=== PATIENT | female | born 1990 | race Caucasian/White ===

== ENCOUNTER 2022-11-06 07:49 | Outpatient (CLI) | payer OTHER ==
--- NOTE | 2022-11-06 12:34 | XRAY Report ---
PROCEDURE: Hand 3 View BILAT INDICATIONS: INFLAMMATION OF JOINT OF BOTH HANDS TECHNIQUE: 3 views of the hand(s) acquired. COMPARISON: None. FINDINGS: Bones: No fractures or dislocations. No suspicious bony lesions. There is no appreciable IP joint space narrowing, osteophytes or erosions bilaterally. Soft tissues: No suspicious soft tissue calcifications or masses. IMPRESSION: No acute bony abnormality. No erosions, IP narrowing or osteophytes. Reviewed by: Yael Johnson MD on 11/06/2022 12:33 PM PDT Approved by: Yael Johnson MD on 11/06/2022 12:33 PM PDT Station ID: [id number]
== END 2022-11-06 07:50 | disposition home or self-care (01) ==
LOC: DI.S 07:49
PROVIDERS: ATTEND Nurse Practitioner Family
DX: M19.042 Primary osteoarthritis, left hand (principal); M19.041 Primary osteoarthritis, right hand